=== PATIENT | male | born 1975 | race Hispanic/Latino ===

== ENCOUNTER 2021-02-10 21:25 | Observation (INO) | payer OTHER ==
[~2021-02-10] VITALS: Ht 170.2 cm; Wt 80.3 kg
[2021-02-10 21:50] VITALS: BP 140/101
[2021-02-10 22:21] LABS: CARBON DIOXIDE 21 mmol/L (21-32); CHLORIDE 96 mmol/L (101-111); GLOMERULAR FILTR. RATE CALC 90 mL/min (>60); GLUCOSE,RANDOM 106 mg/dL (70-105); POTASSIUM 3.7 mmol/L (3.5-5.1); SODIUM SERUM 138 mmol/L (136-145); UREA NITROGEN, BLOOD 14 mg/dL (7-18)
[2021-02-10 22:54] LABS: ASPARTATE AMINOTRANSFERASE 98 U/L (10-37); BILIRUBIN,TOTAL 1.7 mg/dL (0.2-1.0)
[2021-02-10 22:55] LABS: ALANINE AMINOTRANSFERASE 61 U/L (12-78); ALBUMIN 3.9 g/dL (3.5-5.0); CREATINE KINASE, TOTAL 2120 U/L (21-232); MYOGLOBIN 153 ng/mL (10-92); TOTAL PROTEIN, SERUM 8.4 g/dL (6.0-8.3); TROPONIN I < 0.04 ng/mL (0.00-0.06)
[2021-02-10 22:56] LABS: BASOPHILS % (AUTO) 0.3 % (0.0-5.0); HEMATOCRIT 54.5 % (42-54); LYMPHOCYTES % (AUTO) 19.4 % (21.0-51.0); MEAN CORPUSCULAR HEMOGLOBIN 30.3 pg (27.0-33.0); MEAN CORPUSCULAR HGB CONC 34.7 g/dL (32.0-36.0); MEAN CORPUSCULAR VOLUME 87.3 fL (79-99); MONOCYTES % (AUTO) 7.1 % (3.0-13.0); NEUTROPHILS % (AUTO) 73.1 % (40.0-77.0); PLATELET COUNT (AUTO) 195 K/uL (130-400); RED BLOOD CELL COUNT(AUTO) 6.24 MIL/uL (4.50-6.20); RED CELL DISTRIBUTION WIDTH 12.5 % (11.0-15.5); WHITE BLOOD COUNT (AUTO) 8.9 K/uL (4.8-10.8)
[2021-02-10] MEDS ORDERED: PHARMACY COMMUNICATION MISC SCH (23:00)
[2021-02-10] MEDS ORDERED: 0.9%NACL 1000ML 2,000 ML IV ONE ×2 (23:00)
[2021-02-10 23:50] VITALS: BP 142/91
[2021-02-11] MEDS ORDERED: LACTATED RINGERS 1000ML 1,000 ML IV SCH
[2021-02-11] MEDS ORDERED: LACTATED RINGERS 1000ML IV SCH
[2021-02-11] MEDS ORDERED: ONDANSETRON 4MG INJ IV PRN
[2021-02-11] MEDS ORDERED: HYDRALAZINE 20MG/ML VIAL IV PRN (00:30)
[2021-02-11] MEDS ORDERED: NITROGLYCERIN 0.4 MG SL TAB SL PRN (00:30)
[2021-02-11] MEDS ORDERED: ASPIRIN 325MG TAB PO ONE (00:30)
[2021-02-11] MEDS ORDERED: LORAZEPAM 2 MG/ML 1 ML VIAL IVP ONE (01:00)
[2021-02-11 01:04] LABS: AMPHET/METH SCREEN,URINE NEGATIVE (NEGATIVE); BARBITURATE SCREEN, URINE NEGATIVE (NEGATIVE); BENZODIAZEPINES SCREEN,URINE NEGATIVE (NEGATIVE); CANNABINOID SCREEN,URINE POSITIVE (NEGATIVE); COCAINE SCREEN,URINE POSITIVE (NEGATIVE); OPIATE SCREEN,URINE NEGATIVE (NEGATIVE); PHENCYCLIDINE SCREEN,URINE NEGATIVE (NEGATIVE)
[2021-02-11 02:12] VITALS: BP 151/86
[2021-02-11] MEDS ORDERED: ENOXAPARIN SODIUM 40 MG/0.4 ML SYRINGE SQ SCH (09:00)
[2021-02-11] MEDS ORDERED: FAMOTIDINE 20MG TAB PO SCH (09:00)
== END 2021-02-11 01:50 | disposition left against medical advice (07) ==
LOC: EDH 21:25 → EDBD 21:25 → EDHIP 21:26
PROVIDERS: ADMIT Internal Medicine; ATTEND Internal Medicine
DX: M62.82 Rhabdomyolysis (principal); Z20.822 Contact with and (suspected) exposure to COVID-19; R00.0 Tachycardia, unspecified; E86.0 Dehydration; F41.9 Anxiety disorder, unspecified; F32.9 Major depressive disorder, single episode, unspecified; I10 Essential (primary) hypertension; F14.10 Cocaine abuse, uncomplicated; F10.10 Alcohol abuse, uncomplicated; Z90.49 Acquired absence of other specified parts of digestive tract; Z79.899 Other long term (current) drug therapy; Y90.6 Blood alcohol level of 120-199 mg/100 ml
CPT/HCPCS: 36415; 71045; 80053; 80305; 82550; 83735; 83874; 84484; 85025; 87635; 93005; 96361; 96374; 99285; C9803; G0378 ×2; J2060; J7120

== ENCOUNTER 2021-04-26 14:12 | Observation (INO) | payer OTHER ==
[~2021-04-26] VITALS: Ht 160 cm; Wt 78.0 kg
[2021-04-26] MEDS ORDERED: NITROGLYCERIN 1GM OINT 1 INCH/1GM TD ONE (14:30)
[2021-04-26] MEDS ORDERED: LORAZEPAM 2 MG/ML 1 ML VIAL IVP ONE ×2 (14:30→15:30)
[2021-04-26] MEDS ORDERED: ASPIRIN 325MG TAB PO ONE (14:30)
[2021-04-26 14:34] LABS: APPEARANCE,URINE Clear (CLEAR); BILIRUBIN,URINE Negative (NEGATIVE); COLOR,URINE Yellow (YELLOW); GLUCOSE, URINE (UA) TRACE mg/dL (NEGATIVE); KETONES,URINE >=80 mg/dL (NEGATIVE); LEUKOCYTE ESTERASE ,URINE Trace (NEGATIVE); NITRATE,URINE Negative (NEGATIVE); OCCULT BLOOD,URINE Moderate (NEGATIVE); PH,URINE 5.5 (5.0-8.0); PROTEIN,URINE 300 mg/dL (NEGATIVE)
[2021-04-26 14:42] LABS: AMPHET/METH SCREEN,URINE NEGATIVE (NEGATIVE); BARBITURATE SCREEN, URINE NEGATIVE (NEGATIVE); BENZODIAZEPINES SCREEN,URINE NEGATIVE (NEGATIVE); CANNABINOID SCREEN,URINE NEGATIVE (NEGATIVE); COCAINE SCREEN,URINE POSITIVE (NEGATIVE); OPIATE SCREEN,URINE NEGATIVE (NEGATIVE); PHENCYCLIDINE SCREEN,URINE NEGATIVE (NEGATIVE)
[2021-04-26 14:43] LABS: BACTERIA,URINE Few /HPF (None Seen)
[2021-04-26 14:45] LABS: AMORPHOUS SEDIMENT,UR Rare /LPF (None Seen); MUCUS,URINE Rare LPF (None Seen); SQUAMOUS EPITHELIAL CELL,UR Rare /HPF (0-2)
[2021-04-26 14:50] LABS: BASOPHILS % (AUTO) 0.4 % (0.0-5.0); HEMATOCRIT 52.5 % (42-54); LYMPHOCYTES % (AUTO) 7.1 % (21.0-51.0); MEAN CORPUSCULAR HEMOGLOBIN 29.3 pg (27.0-33.0); MEAN CORPUSCULAR HGB CONC 34.5 g/dL (32.0-36.0); MONOCYTES % (AUTO) 4.4 % (3.0-13.0); NEUTROPHILS % (AUTO) 87.8 % (40.0-77.0); PLATELET COUNT (AUTO) 290 K/uL (130-400); RED BLOOD CELL COUNT(AUTO) 6.18 MIL/uL (4.50-6.20); RED CELL DISTRIBUTION WIDTH 12.7 % (11.0-15.5); WHITE BLOOD COUNT (AUTO) 7.9 K/uL (4.8-10.8)
[2021-04-26] MEDS ORDERED: ACETAMINOPHEN 500 MG TABLET PO ONE (15:00)
[2021-04-26 15:14] LABS: CREATINE KINASE, TOTAL 264 U/L (21-232); MYOGLOBIN 63 ng/mL (10-92)
[2021-04-26] MEDS ORDERED: CEFTRIAXONE 1G VIAL ONE (15:16)
[2021-04-26] MEDS ORDERED: 0.9%NACL 50ML 50 ML IV ONE (15:17)
[2021-04-26] MEDS ORDERED: 0.9%NACL 1000ML 1,000 ML IV ONE (15:30)
[2021-04-26] MEDS ORDERED: CEFTRIAXONE 1G VIAL IVP ONE (15:30)
[2021-04-26] MEDS ORDERED: LORAZEPAM 2 MG/ML 1 ML VIAL ONE (15:52)
[2021-04-26] MEDS ORDERED: ACETAMINOPHEN 325 MG TAB PO PRN ×2 (16:00)
[2021-04-26] MEDS ORDERED: ONDANSETRON 4MG INJ IV PRN (16:00)
[2021-04-26] MEDS ORDERED: ALPRAZOLAM 0.5 MG TABLET PO PRN (16:00)
[2021-04-26] MEDS ORDERED: LACTULOSE 20 GM/30 ML UDCUP PO PRN (16:00)
[2021-04-26] MEDS ORDERED: 0.9%NACL 1000ML 1,000 ML IV SCH (16:00)
[2021-04-26] MEDS ORDERED: NITROGLYCERIN 1GM OINT 1 INCH/1GM TD SCH (16:00)
[2021-04-26 16:21] VITALS: BP 162/101
[2021-04-26] MEDS ORDERED: CEFTRIAXONE 1G VIAL IVP SCH (16:30)
[2021-04-26] MEDS ORDERED: FAMOTIDINE 20MG TAB PO SCH (21:00)
[2021-04-27] MEDS ORDERED: ENOXAPARIN SODIUM 40 MG/0.4 ML SYRINGE SQ SCH (09:00)
== END 2021-04-26 17:44 | disposition left against medical advice (07) ==
LOC: EDH 14:12 → EDHIP 15:41
PROVIDERS: ADMIT Internal Medicine; ATTEND Internal Medicine
DX: I24.9 Acute ischemic heart disease, unspecified (principal); Z20.822 Contact with and (suspected) exposure to COVID-19; M62.82 Rhabdomyolysis; R50.9 Fever, unspecified; R07.89 Other chest pain; I10 Essential (primary) hypertension; R00.0 Tachycardia, unspecified; F14.10 Cocaine abuse, uncomplicated; F10.129 Alcohol abuse with intoxication, unspecified; F41.9 Anxiety disorder, unspecified; N39.0 Urinary tract infection, site not specified; Z90.49 Acquired absence of other specified parts of digestive tract; Z79.899 Other long term (current) drug therapy
CPT/HCPCS: 36415; 71045; 80305; 81001; 82550; 83735; 83874; 84145; 84484; 85025; 87040 ×2; 87088; 87635; 93005; 96361; 96374; 96375; 96376; G0378 ×2; J0696; J2060 ×2

== ENCOUNTER 2021-05-12 22:08 | Emergency (ER) | payer OTHER ==
[~2021-05-12] VITALS: Ht 170.2 cm; Wt 78.0 kg
[2021-05-12 22:25] LABS: BASOPHILS % (AUTO) 0.3 % (0.0-5.0); EOSINOPHILS % (AUTO) 0.8 % (0.0-8.0); HEMATOCRIT 41.9 % (42-54); LYMPHOCYTES % (AUTO) 6.3 % (21.0-51.0); MEAN CORPUSCULAR HEMOGLOBIN 30.3 pg (27.0-33.0); MEAN CORPUSCULAR HGB CONC 35.3 g/dL (32.0-36.0); MEAN CORPUSCULAR VOLUME 85.9 fL (79-99); MONOCYTES % (AUTO) 5.9 % (3.0-13.0); NEUTROPHILS % (AUTO) 86.5 % (40.0-77.0); PLATELET COUNT (AUTO) 189 K/uL (130-400); RED BLOOD CELL COUNT(AUTO) 4.88 MIL/uL (4.50-6.20); RED CELL DISTRIBUTION WIDTH 13.2 % (11.0-15.5); WHITE BLOOD COUNT (AUTO) 9.2 K/uL (4.8-10.8)
[2021-05-12 22:34] LABS: CREATININE 0.9 mg/dL (0.5-1.5); POTASSIUM 3.7 mmol/L (3.5-5.1)
[2021-05-12 22:38] LABS: BILIRUBIN,TOTAL 0.9 mg/dL (0.2-1.0); TOTAL PROTEIN, SERUM 7.8 g/dL (6.0-8.3)
[2021-05-12 22:51] LABS: B-TYPE NATRIURETIC PEPTIDE < 5 pg/mL (0-100)
[2021-05-12] MEDS ORDERED: DIAZEPAM 5 MG/ML 2 ML SYG IM ONE (23:00)
[2021-05-12] MEDS ORDERED: HYDR-3421 PO (23:40)
[2021-05-12] MEDS ORDERED: HYDROXYZINE 25 MG TABLET ONE (23:49)
[2021-05-13] MEDS ORDERED: HYDROXYZINE 25 MG TABLET PO ONE
[2021-05-13 01:51] VITALS: BP 134/92
== END 2021-05-13 01:55 | disposition home or self-care (01) ==
LOC: EDH 22:08
DX: F10.280 Alcohol dependence with alcohol-induced anxiety disorder (principal); Z90.89 Acquired absence of other organs; Y90.9 Presence of alcohol in blood, level not specified
CPT/HCPCS: 36415; 71045; 80053; 82550; 83880; 84484; 85025; 93005; 96372; 99285; J3360